=== PATIENT | female | born 1965 | race Caucasian/White ===

== ENCOUNTER 2016-09-26 20:35 | Emergency (ER) | payer MEDICAID ==
[2016-09-26] MEDS ORDERED: ACETAMINOPHEN 325 MG TABLET PO ONE (21:08)
--- NOTE | 2016-09-26 21:08 | ER Document Report ---
ED Medical Screen (RME) - General Stated Complaint: LEFT SHOULDER/HIP PAIN Notes: patient is a 51 year old female with left shoulder pain and along her left shoulder blade and radiating into her arm low back pain with right sciatica I have greeted and performed a rapid initial assessment of this patient. A comprehensive ED assessment and evaluation of the patient, analysis of test results and completion of the medical decision making process will be conducted by additional ED providers. TRAVEL OUTSIDE OF THE [place] IN LAST 30 DAYS: No - Related Data Allergies/Adverse Reactions: No Known Allergies Allergy (Unverified 09/26/16 21:07) Physical Exam - Vital signs Vitals: Temp Pulse Resp BP 97.9 F 108 H 20 151/95 H 09/26/16 21:01 09/26/16 21:01 09/26/16 21:01 09/26/16 21:01 Course - Vital Signs Vital signs: Temp Pulse Resp BP Pulse Ox 97.9 F 108 H 20 151/95 H 09/26/16 21:01 09/26/16 21:01 09/26/16 21:01 09/26/16 21:01
[2016-09-26] MEDS ORDERED: IBUPROFEN 800 MG TABLET PO ONE (21:21)
[2016-09-27] MEDS: HYDROCODONE/ACETAMINOPHEN 5-325 MG 6 TAB/DSPK PO PRN ×2 (01:07→01:13)
--- NOTE | 2016-09-27 01:08 | ER Document Report ---
ED Extremity Problem, Upper - General Chief Complaint: Shoulder Injury Stated Complaint: LEFT SHOULDER/HIP PAIN Time seen by provider: 01:07 Mode of Arrival: Ambulatory Information source: Patient TRAVEL OUTSIDE OF THE [place] IN LAST 30 DAYS: No - HPI Patient complains to provider of: Injury, Pain, Left, Shoulder Onset: Just prior to arrival Recent injury: Yes Where: Home, Outdoors Quality of pain: Achy Severity of pain: Moderate Pain Level: 4 Context: Blow Exacerbated by: Movement Relieved by: Nothing Similar symptoms previously: No Recently seen / treated by doctor: No Notes: 51-year-old female presents to the emergency room complaining of injury to her left shoulder after the roof of her porch fell on top of her today, she denies a head injury or loss of consciousness, reports a hurts to move the shoulder or palpate the posterior area of the shoulder, she has several superficial scratches to the upper part of the left arm, distal sensation and motor is intact - Related Data Allergies/Adverse Reactions: acetaminophen Allergy (Verified 09/27/16 03:25) Past Medical History - General Information source: Patient - Social History Smoking Status: Current Every Day Smoker Chew tobacco use (# tins/day): No Frequency of alcohol use: None Drug Abuse: None Family History: Reviewed & Not Pertinent Patient has suicidal ideation: No Patient has homicidal ideation: No Renal/ Medical History: Denies: Hx Peritoneal Dialysis Review of Systems - Review of Systems Constitutional: No symptoms reported EENT: No symptoms reported Cardiovascular: No symptoms reported Respiratory: No symptoms reported Gastrointestinal: No symptoms reported Genitourinary: No symptoms reported Female Genitourinary: No symptoms reported Musculoskeletal: See HPI Skin: No symptoms reported Hematologic/Lymphatic: No symptoms reported Neurological/Psychological: No symptoms reported -: Yes All other systems reviewed and negative Physical Exam - Vital signs Vitals: Temp Pulse Resp BP 97.9 F 108 H 20 151/95 H 09/26/16 21:01 09/26/16 21:01 09/26/16 21:01 09/26/16 21:01 Interpretation: Hypertensive, Tachycardic - General In distress: Mild - Appears in pain - HEENT Head: Normocephalic, Atraumatic Eyes: Normal Conjunctiva: Normal Extraocular movements intact: Yes Eyelashes: Normal Pupils: PERRL Neck: Other - Mild tenderness in the left paraspinal musculature - Respiratory Respiratory status: No respiratory distress Chest status: Nontender Breath sounds: Normal Chest palpation: Normal - Cardiovascular Rhythm: Regular Heart sounds: Normal auscultation - Abdominal Inspection: Normal - Back Back: Normal - Extremities Shoulder: Tender - Tender to palpate left shoulder posteriorly, pain with range of motion testing, several superficial scratches to the left upper arm, distal sensation and motor is intact with 2+ radial pulses and brisk capillary refill - Neurological Orientation: AAOx4 Early Coma Scale Eye Opening: Spontaneous Sol Coma Scale Verbal: Oriented Early Coma Scale Motor: Obeys Commands Early Coma Scale Total: 15 - Psychological Associated symptoms: Normal affect, Normal mood - Skin Skin Temperature: Warm Skin Moisture: Dry Skin Color: Normal Course - Re-evaluation Re-evalutation: 09/27/16 03:42 Patient's last tetanus shot was approximately 1.5 years ago, imaging shows no evidence of injury, she was provided with pain medication and a sling as well as information for follow-up with orthopedics, advised to return if symptoms worsen, patient acknowledges understanding and agreement with this plan - Vital Signs Vital signs: Temp Pulse Resp BP Pulse Ox 97.8 F 102 H 18 148/88 H 97 09/27/16 01:15 09/27/16 01:15 09/27/16 01:15 09/27/16 01:15 09/27/16 01:15 - Diagnostic Test Radiology reviewed: Image reviewed, Reports reviewed Procedures - Immobilization Left Shoulder Time completed: 23:43 Pre-Proc Neuro Vasc Exam: Normal Immobilizer type: Sling Performed by: PCT Post-Proc Neuro Vasc Exam: Normal Alignment checked and good: Yes Discharge - Discharge Clinical Impression: Injury of left shoulder Qualifiers: Encounter type: initial encounter Qualified Code(s): S49.92XA - Unspecified injury of left shoulder and upper arm, initial encounter Condition: Stable Disposition: HOME, SELF-CARE Instructions: Oral Narcotic Medication ([facility]), Sling as Treatment ([facility]) Additional Instructions: Follow up with your primary care provider and an orthopedic surgeon in one to 2 days. Return to the emergency room immediately if symptoms worsen or any additional concerns. Ice and elevate the affected extremity. Prescriptions: Hydrocodone/Acetaminophen [Hydrocodon-Acetaminophen 5-325] 1 each PO Q6 #20 tablet Forms: Elevated Blood Pressure Referrals: BERTO GARCIA MD [Primary Care Provider] - Follow up as needed NAVID BABIN MD [ACTIVE STAFF] - Follow up as needed
[2016-09-27 03:28] VITALS: BP 148/88
== END 2016-09-27 01:20 | disposition home or self-care (01) ==
LOC: ER 20:35
DX: S49.92XA Unspecified injury of left shoulder and upper arm, initial encounter (principal); S40.812A Abrasion of left upper arm, initial encounter; W20.8XXA Other cause of strike by thrown, projected or falling object, initial encounter; Y92.009 Unspecified place in unspecified non-institutional (private) residence as the place of occurrence of the external cause; F17.200 Nicotine dependence, unspecified, uncomplicated; Z88.6 Allergy status to analgesic agent
CPT/HCPCS: 99283; 73030; J3490